=== PATIENT | female | born 1945 ===

== ENCOUNTER 2024-05-03 05:21 | Day surgery (SDC) | payer OTHER ==
[2024-04-26 09:59] LABS: HEMATOCRIT 34.6 % (36.0-45.00); HEMOGLOBIN 11.7 g/dL (12.0-15.00); MEAN CELL VOLUME 90.6 fL (80.00-100.00); MEAN CORPUSCULAR HEMOGLOBIN 30.5 pg (27.00-32.0); MEAN CORPUSCULAR HGB CONC 33.7 g/dl (32.0-36.0); PLATELET COUNT 255 K/uL (150-450); RED BLOOD COUNT 3.82 M/uL (4.00-6.00)
[2024-04-26 10:04] LABS: URINE APPEARANCE Clear; URINE BILIRRUBIN Negative (NEGATIVE); URINE BLOOD Negative; URINE COLOR Yellow; URINE GLUCOSE Negative (NEGATIVE); URINE KETONE Negative (NEGATIVE); URINE LEUKOCYTE Small; URINE NITRATE Negative; URINE PROTEIN Negative (NEGATIVE); URINE UROBILINOGEN 0.2 E.U./dl
[2024-04-26 10:11] LABS: URINE EPITHELIAL CELLS 29.3 uL (0.0-38.8); URINE RBC 3.8 uL (0.0-20.8)
[2024-04-26 10:15] LABS: URINE CAST 0.45 uL (0.0-1.40)
[2024-04-26 10:49] LABS: ALBUMIN 4.1 gm/dL (3.4-5.0); CALCIUM 9.7 mg/dL (8.5-10.1); CREATININE SERUM 0.74 mg/dL (0.55-1.02); GFR 76.1; PHOSPHOROUS 3.2 mg/dL (2.5-4.9); POTASSIUM 4.44 mEq/L (3.5-5.1)
[2024-04-26 10:53] LABS: INR 0.98; PARTIAL THROMBOPLASTIN TIME 29.6 SECONDS (22.0-34.0); PROTHROMBIN TIME 10.3 SECONDS (9.0-11.5)
[~2024-05-03 05:21] MED LIST: COZAAR100 MG; FENOFIBRATE150 MG; SYNTHROID112 MCG
[2024-05-03] MEDS ORDERED: LIDOCAINE HCL 1%/EPINEPHRINE 20ML VIAL IJ ONE (09:41)
[2024-05-03] MEDS ORDERED: POVIDONE-IODINE 118 ML BOTT TOP ONE (09:41)
[2024-05-03] MEDS ORDERED: EPINEPHRINE HCL/PF 1 MG/ML AMPUL ONE (09:41)
[2024-05-03] MEDS ORDERED: DEXAMETHASONE SODIUM PHOSPHATE 4 MG/ML VIAL ONE ×2 (09:44→11:49)
[2024-05-03] MEDS ORDERED: CEFAZOLIN SODIUM 1,000 MG VIAL IV ONE (10:45)
[2024-05-03] MEDS ORDERED: CEPHALEXIN500 M1 PO (12:54)
[2024-05-03] MEDS ORDERED: CIPROFLOXACIN2.5 ML OTIC (12:55)
== END 2024-05-03 16:20 | disposition home or self-care (01) ==
LOC: CIR.AMB 05:21
PROVIDERS: ATTEND Otolaryngology Otology & Neurotology
DX: H71.21 Cholesteatoma of mastoid, right ear (principal); H70.11 Chronic mastoiditis, right ear; H72.01 Central perforation of tympanic membrane, right ear; Z91.02 Food additives allergy status; I10 Essential (primary) hypertension; J40 Bronchitis, not specified as acute or chronic; M19.90 Unspecified osteoarthritis, unspecified site; Z86.73 Personal history of transient ischemic attack (TIA), and cerebral infarction without residual deficits